=== PATIENT | male | born 1960 | race Caucasian/White ===

== ENCOUNTER 2019-05-05 15:38 | Inpatient (IN) | payer OTHER ==
[2019-05-05 16:12] LABS: ADD MAN DIFF? NO
[2019-05-05 16:20] LABS: WHITE BLOOD COUNT 4.7 10^3/ul (4.8-10.8)
[2019-05-05 16:20] LABS: ABNORMAL IP MESSAGE 1; BASOPHILS % 0.6 % (0.0-2.0); EOSINOPHILS % 0.9 % (0.0-7.0); HEMATOCRIT 44.8 % (42.0-52.0); HEMOGLOBIN 15.2 g/dl (14.0-18.0); LYMPHOCYTES # 1.1 10^3/ul (0.8-2.9); MEAN CORPUSCULAR HEMOGLOBIN 32.3 pg (29.0-33.0); MEAN CORPUSCULAR HGB CONC 33.9 g/dl (32.0-37.0); MEAN CORPUSCULAR VOLUME 95.3 fl (82.0-101.0); MEAN PLATELET VOLUME 13.6 fl (7.4-10.4); MONOCYTE # 0.5 10^3/ul (0.3-0.9); MONOCYTES % 11.6 % (0.0-11.0); NEUTROPHILS % 63.5 % (39.0-77.0); PLATELET COUNT 130 10^3/UL (140-415); POSITIVE DIFF @See below; RED CELL DISTRIBUTION WIDTH 15.2 % (11.5-14.5)
[2019-05-05] MEDS: SOD CHLORIDE 0.9% 500 ML IV (16:26)
[2019-05-05] MEDS: DILTIAZEM 25 MG INJ IV (16:26)
[2019-05-05 16:33] LABS: INR 1.16; PARTIAL THROMBOPLASTIN TIME 27.1 Sec (23.0-35.0); PROTIME 14.9 Sec (11.9-14.9); PT RATIO 1.2
[2019-05-05 16:43] LABS: ALANINE AMINOTRANSFERASE 71 IU/L (13-69); ALBUMIN 3.5 g/dl (3.3-4.9); ALBUMIN/GLOBULIN RATIO 1.16; ALKALINE PHOSPHATASE 116 IU/L (42-121); AMYLASE 140 U/L (11-123); ANION GAP 11 (5-13); ASPARTATE AMINO TRANSFERASE 50 IU/L (15-46); BLOOD UREA NITROGEN 16 mg/dl (7-20); CALCIUM 8.8 mg/dl (8.4-10.2); CARBON DIOXIDE 22 mmol/L (21-31); CHLORIDE 100 mmol/L (97-110); CREATININE 0.94 mg/dl (0.61-1.24); Estimated GFR > 60 mL/min (>60); GLUCOSE 125 mg/dl (70-220); LIPASE 310 U/L (23-300); POTASSIUM 3.7 mmol/L (3.5-5.1); SODIUM 133 mmol/L (135-144); TOTAL PROTEIN 6.5 g/dl (6.1-8.1)
[2019-05-05] MEDS: DILTIAZEM-D5W 125MG/125ML DRIP 125 ML IV (16:45)
[2019-05-05 16:53] LABS: TROPONIN-I 0.037 ng/ml (0.000-0.120)
[2019-05-05 17:53] LABS: B-TYPE NATRIURETIC PEPTIDE 5900 PG/ML (0-125)
[2019-05-05] MEDS ORDERED: ONDANSETRON 4 MG INJ IV ×2 (18:00→19:30)
[2019-05-05] MEDS ORDERED: ACETAMINOPHEN 325 MG TAB PO ×2 (18:00→19:30)
[2019-05-05 19:26] LABS: MAGNESIUM 1.7 mg/dl (1.7-2.5)
[2019-05-05] MEDS ORDERED: DOCUSATE SODIUM 100 MG CAP PO (19:30)
[2019-05-05] MEDS ORDERED: ZOLPIDEM 5 MG TAB PO (19:30)
[2019-05-05] MEDS ORDERED: NACL 0.9% 3 ML SYG IV (19:30)
[2019-05-05] MEDS ORDERED: morphine 2 MG INJ IV (19:30)
[2019-05-05] MEDS: METOPROLOL 25 MG TAB PO (22:37)
[2019-05-05] MEDS: FUROSEMIDE 40 MG INJ IV (22:58)
[2019-05-05] MEDS: MAGNESIUM SULFATE 2 GM/50 ML 50 ML IVPB (23:09)
[2019-05-05] MEDS: HYDROCODONE/APAP (5/325) TAB PO (23:22)
[2019-05-06] MEDS: FUROSEMIDE 40 MG INJ IV ×2 (08:27→17:25)
[2019-05-06] MEDS: FOLIC ACID 1 MG TAB PO (08:28)
[2019-05-06] MEDS: METOPROLOL 25 MG TAB PO ×2 (08:28→21:59)
[2019-05-06] MEDS: THIAMINE 100 MG TAB PO (08:28)
[2019-05-06] MEDS: MULTIVITAMINS THERAPEUTIC TAB PO (08:28)
[2019-05-06] MEDS: ENOXAPARIN 40 MG/0.4 ML SYG SC (08:39)
[2019-05-06 09:13] LABS: ADD MAN DIFF? NO; HAAIG REFLEX REFLEX FILED
[2019-05-06 09:17] LABS: WHITE BLOOD COUNT 4.2 10^3/ul (4.8-10.8)
[2019-05-06 09:17] LABS: ABNORMAL IP MESSAGE 1; BASOPHILS % 0.7 % (0.0-2.0); EOSINOPHILS % 0.5 % (0.0-7.0); HEMOGLOBIN 14.1 g/dl (14.0-18.0); LYMPHOCYTES # 0.9 10^3/ul (0.8-2.9); LYMPHOCYTES % 21.1 % (15.0-51.0); MEAN CORPUSCULAR HEMOGLOBIN 32.8 pg (29.0-33.0); MEAN CORPUSCULAR HGB CONC 33.6 g/dl (32.0-37.0); MEAN CORPUSCULAR VOLUME 97.7 fl (82.0-101.0); MONOCYTE # 0.7 10^3/ul (0.3-0.9); MONOCYTES % 16.2 % (0.0-11.0); NEUTROPHIL # 2.6 10^3/ul (1.6-7.5); NEUTROPHILS % 61.3 % (39.0-77.0); PLATELET COUNT 122 10^3/UL (140-415); POSITIVE DIFF @See below; RED CELL DISTRIBUTION WIDTH 15.5 % (11.5-14.5)
[2019-05-06 09:37] LABS: ALANINE AMINOTRANSFERASE 61 IU/L (13-69); ALBUMIN 2.8 g/dl (3.3-4.9); ALBUMIN/GLOBULIN RATIO 1.07; ALKALINE PHOSPHATASE 94 IU/L (42-121); ANION GAP 7 (5-13); ASPARTATE AMINO TRANSFERASE 38 IU/L (15-46); BILIRUBIN,INDIRECT 2.1 mg/dl (0-1.1); BILIRUBIN,TOTAL 2.1 mg/dl (0.2-1.3); BLOOD UREA NITROGEN 14 mg/dl (7-20); CALCIUM 8.6 mg/dl (8.4-10.2); CARBON DIOXIDE 26 mmol/L (21-31); CHLORIDE 100 mmol/L (97-110); CHOL/HDL RATIO 2.5 RATIO; CHOLESTEROL 106 mg/dl (100-200); Estimated GFR > 60 mL/min (>60); GLUCOSE 89 mg/dl (70-220); HDL CHOLESTEROL 42 mg/dl (28-71); LDL CHOLESTEROL,CALCULATED 53 mg/dl; PHOSPHORUS 4.3 mg/dl (2.5-4.9); POTASSIUM 3.8 mmol/L (3.5-5.1); SODIUM 133 mmol/L (135-144); TOTAL PROTEIN 5.4 g/dl (6.1-8.1); TRIGLYCERIDES 56 mg/dl (0-149)
[2019-05-06 09:44] LABS: LIPASE 217 U/L (23-300)
[2019-05-06 09:46] LABS: B-TYPE NATRIURETIC PEPTIDE 3750 PG/ML (0-125)
[2019-05-06 09:54] LABS: FREE THYROXINE INDEX (Calc) 2.97 ug/ml (0.65-3.89); T3 UPTAKE 49.5 % (23.5-40.5)
[2019-05-06 10:07] LABS: HEPATITIS B SURFACE ANTIGEN NEGATIVE (NEGATIVE)
[2019-05-06 10:14] LABS: HEMOGLOBIN A1C 5.4 % (0-5.9)
[2019-05-06 10:25] LABS: HEPATITIS B CORE ANTIBODY NEGATIVE (NEGATIVE); HEPATITIS C VIRAL ANTIBODY NEGATIVE (NEGATIVE)
[2019-05-06 11:32] LABS: MAGNESIUM 1.8 mg/dl (1.7-2.5)
[2019-05-06] MEDS ORDERED: METOPROLOL 5 MG INJ IV (12:30)
[2019-05-06] MEDS: DIGOXIN 500 MCG INJ IV (12:40)
[2019-05-06 18:16] LABS: TROPONIN-I 0.034 ng/ml (0.000-0.120)
[2019-05-06] MEDS: ENOXAPARIN 60 MG/0.6 ML SYG SC (22:08)
[2019-05-07 01:53] LABS: TROPONIN-I 0.036 ng/ml (0.000-0.120)
[2019-05-07] MEDS: FUROSEMIDE 40 MG INJ IV ×2 (06:32→17:58)
[2019-05-07 06:47] LABS: ANION GAP 5 (5-13); BLOOD UREA NITROGEN 15 mg/dl (7-20); CALCIUM 8.1 mg/dl (8.4-10.2); CARBON DIOXIDE 30 mmol/L (21-31); CHLORIDE 99 mmol/L (97-110); CREATININE 0.97 mg/dl (0.61-1.24); Estimated GFR > 60 mL/min (>60); GLUCOSE 82 mg/dl (70-220); HDL CHOLESTEROL 32 mg/dl (28-71); LDL CHOLESTEROL,CALCULATED 54 mg/dl; MAGNESIUM 1.5 mg/dl (1.7-2.5); POTASSIUM 3.2 mmol/L (3.5-5.1); SODIUM 134 mmol/L (135-144); TRIGLYCERIDES 53 mg/dl (0-149)
[2019-05-07 06:47] LABS: CHOLESTEROL 97 mg/dl (100-200)
[2019-05-07 07:01] LABS: TROPONIN-I 0.041 ng/ml (0.000-0.120)
[2019-05-07] MEDS: THIAMINE 100 MG TAB PO (08:39)
[2019-05-07] MEDS: MULTIVITAMINS THERAPEUTIC TAB PO (08:39)
[2019-05-07] MEDS: FOLIC ACID 1 MG TAB PO (08:39)
[2019-05-07] MEDS: METOPROLOL 25 MG TAB PO (08:40)
[2019-05-07] MEDS: ENOXAPARIN 60 MG/0.6 ML SYG SC ×2 (08:42→21:34)
[2019-05-07] MEDS: POTASSIUM CHLORIDE (SR) 20 MEQ TAB PO (09:35)
[2019-05-07] MEDS: MAGNESIUM OXIDE 400 MG TAB PO (09:36)
[2019-05-07] MEDS: MAGNESIUM SULFATE 3 GM in DEXTROSE 5% 100 ML IVPB (10:46)
[2019-05-07] MEDS: DIGOXIN 500 MCG INJ IV ×2 (12:39→17:59)
[2019-05-07] MEDS: METOPROLOL (XL) 25 MG TAB PO (21:21)
[2019-05-08] MEDS: FUROSEMIDE 40 MG INJ IV ×2 (06:04→17:25)
[2019-05-08 07:36] LABS: ADD MAN DIFF? NO
[2019-05-08 07:52] LABS: ABNORMAL IP MESSAGE 1; BASOPHIL # 0.1 10^3/ul (0.0-0.1); EOSINOPHILS # 0.1 10^3/ul (0.0-0.5); EOSINOPHILS % 1.6 % (0.0-7.0); HEMATOCRIT 47.9 % (42.0-52.0); HEMOGLOBIN 16.3 g/dl (14.0-18.0); LYMPHOCYTES # 1.1 10^3/ul (0.8-2.9); LYMPHOCYTES % 22.2 % (15.0-51.0); MEAN CORPUSCULAR HEMOGLOBIN 32.6 pg (29.0-33.0); MEAN CORPUSCULAR VOLUME 95.8 fl (82.0-101.0); MEAN PLATELET VOLUME 13.5 fl (7.4-10.4); MONOCYTE # 0.8 10^3/ul (0.3-0.9); MONOCYTES % 16.3 % (0.0-11.0); NEUTROPHIL # 2.9 10^3/ul (1.6-7.5); NEUTROPHILS % 58.7 % (39.0-77.0); PLATELET COUNT 153 10^3/UL (140-415); POSITIVE DIFF @See below; RED CELL DISTRIBUTION WIDTH 15.2 % (11.5-14.5)
[2019-05-08 08:08] LABS: ANION GAP 7 (5-13); BLOOD UREA NITROGEN 13 mg/dl (7-20); CALCIUM 8.1 mg/dl (8.4-10.2); CARBON DIOXIDE 31 mmol/L (21-31); CHLORIDE 97 mmol/L (97-110); CREATININE 0.84 mg/dl (0.61-1.24); Estimated GFR > 60 mL/min (>60); GLUCOSE 72 mg/dl (70-220); MAGNESIUM 1.6 mg/dl (1.7-2.5); SODIUM 135 mmol/L (135-144)
[2019-05-08] MEDS: METOPROLOL (XL) 25 MG TAB PO (08:09)
[2019-05-08] MEDS: FOLIC ACID 1 MG TAB PO (08:10)
[2019-05-08] MEDS: LISINOPRIL 5 MG TAB PO (08:10)
[2019-05-08] MEDS: MULTIVITAMINS THERAPEUTIC TAB PO (08:11)
[2019-05-08] MEDS: THIAMINE 100 MG TAB PO (08:11)
[2019-05-08] MEDS: SPIRONOLACTONE 25 MG TAB PO (08:11)
[2019-05-08] MEDS: ENOXAPARIN 60 MG/0.6 ML SYG SC (08:12)
[2019-05-08] MEDS: DIGOXIN 500 MCG INJ IV (13:34)
[2019-05-09] MEDS ORDERED: DIGOXIN 0.125 MG TAB PO (13:00)
== END 2019-05-08 17:56 | disposition home or self-care (01) | DRG 291 ==
LOC: E/R 15:38 → TEL 17:51
PROVIDERS: Internal Medicine
DX: I50.9 Heart failure, unspecified (principal); K85.20 Alcohol induced acute pancreatitis without necrosis or infection; F10.288 Alcohol dependence with other alcohol-induced disorder; Q21.1 Atrial septal defect; I48.91 Unspecified atrial fibrillation; K70.10 Alcoholic hepatitis without ascites; D69.6 Thrombocytopenia, unspecified; I42.9 Cardiomyopathy, unspecified; I34.0 Nonrheumatic mitral (valve) insufficiency
CPT/HCPCS: 71045; 76705; 80048; 80053; 80061; 82150; 83036; 83690; 83735; 83880; 84100; 84436; 84443; 84479; 84484; 85025; 85610; 85730; 86704; 86709; 86803; 87040-91; 87340; 93005; 93306; 93970; 96374; 96375; 99285-25